=== PATIENT | female | born 1975 | race Caucasian/White ===

== ENCOUNTER 2019-05-10 11:53 | Emergency (ER) | payer MEDICAID ==
[~2019-05-10] VITALS: Ht 154.9 cm; Wt 51.7 kg
[2019-05-10 11:58] VITALS: BP 113/71; Ht 154.9 cm; Wt 51.7 kg
== END 2019-05-10 13:50 | disposition left against medical advice (07) ==
LOC: ED 11:53
DX: N76.0 Acute vaginitis (principal)
CPT/HCPCS: 87491; 87591; J0696

== ENCOUNTER 2020-02-10 11:45 | Emergency (ER) | payer OTHER ==
[~2020-02-10] VITALS: Ht 154.9 cm; Wt 54.0 kg
[2020-02-10 11:47] VITALS: Ht 154.9 cm; Wt 54.0 kg
[2020-02-10 12:42] LABS: UA SPECIFIC GRAVITY <=1.005 (1.005-1.035); microscopic required? YES; urine erythrocyte 2+ (NEGATIVE)
[2020-02-10 14:22] VITALS: BP 117/79
== END 2020-02-10 14:22 | disposition home or self-care (01) ==
LOC: ED 11:45
PROVIDERS: Emergency Medicine
DX: N93.9 Abnormal uterine and vaginal bleeding, unspecified (principal); R35.0 Frequency of micturition; Z98.82 Breast implant status
CPT/HCPCS: 87491; 87591